=== PATIENT | male | born 1980 | race Caucasian/White ===

== ENCOUNTER 2021-07-25 15:53 | Outpatient (RCR) | payer OTHER, SELFPAY | END 2021-08-16 23:59 | LOC: NS 15:53 | PROVIDERS: Visit Provider Family Medicine | DX: Z71.3 Dietary counseling and surveillance (principal); E66.9 Obesity, unspecified; Z68.33 Body mass index [BMI] 33.0-33.9, adult | CPT/HCPCS: 97802 ==